=== PATIENT | female | born 1950 | race Caucasian/White ===

== ENCOUNTER 2017-08-24 19:38 | Emergency (ER) | payer MEDICARE ==
[~2017-08-24] VITALS: Ht 157.5 cm; Wt 82.0 kg
[2017-08-24 19:39] VITALS: BP 191/81; PULSE 95; RESP 16; TEMP 99.4; O2SAT 95
--- NOTE | 2017-08-24 20:29 | RADRPT ---
EXAM DATE/TIME: 08/24/2017 20:20 [place] COMPARISON: No previous studies available for comparison. INDICATIONS : Cough, chest pain, and shortness of breath for one week. MEDICAL HISTORY : None. SURGICAL HISTORY : Cholecystectomy. ENCOUNTER: Initial ACUITY: 1 week PAIN SCORE: 5/10 LOCATION: Bilateral chest FINDINGS: PA and lateral views of the chest demonstrate the lungs to be symmetrically aerated without evidence of mass, infiltrate or effusion. The cardiomediastinal contours are unremarkable. Osseous structure s are intact. CONCLUSION: No acute disease. Houston Charles MD on August 24, 2017 at 20:26 Board Certified Radiologist. This report was verified electronically.
--- NOTE | 2017-08-24 20:56 | PD ---
HPI Chief Complaint: Cold / Flu Symptoms Time Seen by Provider: 19:59 Travel History International Travel<30 days: No Contact w/Intl Traveler<30days: No Traveled to known affect area: No History of Present Illness HPI 66 year-old woman, presents to the emergency department complaining of cough cold symptoms for the past week. No fevers or chills. She is having some chest congestion. She states multiple family members were sick he felt like it went into her chest and she is not getting better or worse over 1 ounces. She is having some shortness of breath. She has no history of lung disease or tobacco use. She otherwise has been feeling generally well and healthy. No other complaints. History Past Medical History Narrative Medical Diabetes CAD Tetanus Vaccination: Unknown Influenza Vaccination: Yes Social History Alcohol Use: No Tobacco Use: No Allergies-Medications (Allergen,Severity, Reaction): Coded Allergies: metformin (Verified Allergy, Severe, Edema, 08/24/17) Review of Systems Except as stated in HPI: all other systems reviewed are Neg Physical Exam Narrative GENERAL: 66 year-old woman, no acute distress. SKIN: Focused skin assessment warm/dry. HEAD: Atraumatic. Normocephalic. EYES: Pupils equal and round. No scleral icterus. No injection or drainage. ENT: No nasal bleeding or discharge. Mucous membranes pink and moist. TMs normal. Throat normal. NECK: Trachea midline. No JVD. No significant adenopathy. CARDIOVASCULAR: Regular rate and rhythm. No murmur appreciated. RESPIRATORY: No accessory muscle use. Clear to auscultation. Breath sounds equal bilaterally. GASTROINTESTINAL: Abdomen soft, non-tender, nondistended. Hepatic and splenic margins not palpable. MUSCULOSKELETAL: No obvious deformities. No clubbing. No cyanosis. No edema. NEUROLOGICAL: Awake and alert. No obvious cranial nerve deficits. Motor grossly within normal limits. Normal speech. PSYCHIATRIC: Appropriate mood and affect; insight and judgment normal. Data Data Last Documented VS Vital Signs Date Time Temp Pulse Resp B/P (MAP) Pulse Ox O2 Delivery O2 Flow Rate FiO2 08/24/17 19:39 99.4 95 16 191/81 (117) 95 Room Air Orders Orders Chest, Pa & Lat (08/24/17 ) Influenzae A/B Antigen (08/24/17 20:12) MDM Medical Decision Making Medical Screen Exam Complete: Yes Emergency Medical Condition: Yes Interpretation(s) Chest x-ray: Negative Influenza A: Positive Differential Diagnosis Influenza, pneumonia, bronchitis, other Narrative Course Medical decision making 66 year-old woman, presents emergency Department with cough cold symptoms with some chest congestion. Positive for influenza a. Chest x-rays negative for pneumonia. Looks otherwise well. At this point, she had symptoms for 5 days, likely improve. Recommend continued supportive treatment. Diagnosis Primary Impression: Influenza A Additional Instructions: Take acetaminophen or ibuprofen as a for fever or body aches. You can return to work after you have had no fever for 24 hours. Drink plenty of fluids to stay well-hydrated. Follow-up with your primary doctor if you are not completely well in 7-10 days. Return to the emergency department for any worsening chest pain, trouble breathing, or any other new or worsening symptoms. Disposition: 01 DISCHARGE HOME Condition: Stable Alonzo Elise MD Aug 24, 2017 20:56
[2017-08-24] MEDS ORDERED: AZIT250T3 PO (21:01)
--- NOTE | 2017-08-24 21:01 | PD ---
Data Data Last Documented VS Vital Signs Date Time Temp Pulse Resp B/P (MAP) Pulse Ox O2 Delivery O2 Flow Rate FiO2 08/24/17 19:39 99.4 95 16 191/81 (117) 95 Room Air Orders Orders Chest, Pa & Lat (08/24/17 ) Influenzae A/B Antigen (08/24/17 20:12) Ed Discharge Order (08/24/17 20:56) MDM Supervised Visit with TAMARA: No Narrative Course Patient may be developing early postviral pneumonia. Chest x-rays negative. We 'll give her a watch and see antibiotics for azithromycin. Diagnosis Primary Impression: Influenza A Additional Instruction: Take Aleve twice daily, and Mucinex DM, available [id number]. If he started to develop fevers again, or you are not improving in the next 2-3 days, take azithromycin as prescribed. You can return to work after you have had no fever for 24 hours. Drink plenty of fluids to stay well-hydrated. Follow-up with your primary doctor if you are not completely well in 7-10 days. Return to the emergency department for any worsening chest pain, trouble breathing, or any other new or worsening symptoms. Med/Other Pt SpecificInfo: Prescription(s) given Scripts Azithromycin (Azithromycin) 250 Mg Tab 250 MG PO DIRECTED for Infection, #6 TAB 0 Refills Take 2 tabs (500 mg) on day 1 then 1 tab daily x 4 days. Prov: Alonzo Elise MD 08/24/17 Disposition: 01 DISCHARGE HOME Condition: Stable Alonzo Elise MD Aug 24, 2017 21:01
== END 2017-08-24 21:16 | disposition home or self-care (01) ==
LOC: NEPD 19:38
DX: J09.X2 Influenza due to identified novel influenza A virus with other respiratory manifestations (principal); E11.9 Type 2 diabetes mellitus without complications; I25.10 Atherosclerotic heart disease of native coronary artery without angina pectoris
CPT/HCPCS: 71046; 87804; 99284